=== PATIENT | male | born 1960 ===

== ENCOUNTER 2024-11-09 17:39 | Outpatient (REF) | payer BC, SELFPAY ==
--- OUTSIDE RECORDS SUMMARY | 2024-11-09 17:45 | XMS_ITS | Encounter Summary ---
Author Organization [facility] Address [address] [place] [address] Care Team Providers Care Joist Setter Name Role Phone Augustin Jessica Primary Care Provider [phone] Reason for Visit * Reason Onset Date Comments Fatigue 10/25/2024 Encounter Details Date Type Department Care Team ([facility] st Contact Info) Description 10/25/2024 Telephone [facility] Orthopedic Department [address] [address] Gricel Polk MD [address] [place] [address] Fatigue Social History Tobacco Use Types Packs/Day Years Used Date Smoking Tobacco: Never Smokeless Tobacco: Never Comments:: Alcohol Use Standard Drinks/Week Comments Never 0 (1 standard drink = 0.6 oz pur e alcohol) [facility] Utilities Answer Date Recorded In the past 12 months has [employer], gas, oil, or water [employer]se[employer] threatened to shut off services in your home? No 09/29/2024 Hunger Vital Sign Answer Date Recorded Within the past 12 months, y ou worried that your food would run out before you got the money to buy more. Never true 09/30/19 25 Within the past 12 months, t he food you bought just didn't last and you didn't have money to get more. Never true 09/29/2024 Transportation Answer Date Recorded In the past 12 months, has l ack of reliable transportation kept you from medical appointments, meetings, work or from getting things needed for daily living? No 09/29/2024 Housing Answer Date Recorded Housing Risk Low 2 09/29/2024 Housing Risk Medium Not on file 09/29/2024 Housing Risk High Not on file 09/29/2024 What is your living situation today? [facility] 09/29/2024 Sex and Gender Information Value Date Recorded Sex Assigned at Male 05/23/2023 6:09 PM EST Legal Sex Male 6:48 PM EDT Gender Identity Not on file Sexual Orientation Not on file documented as of this encounter Miscellaneous Notes * Telephone Encounter - Jessica Rodriguez - 10/25/2024 9:[address] Polk, JASON Patient called in today asking to be evaluated today. He was explaining to me he has weakness, fatigue, and overall not feeling good. I asked if this was related to his wound you have treated on 10/12. I asked if the patient if his wound could be infected and asked the follow up questions. He said hedoesn't know. I advised him call his PCP but he can't be seen in three days. I advised him to go toUC which he refused and said he might think about going to ED. 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: El Bunn III, MD [address] [place] [phone] documented as of this encounter Visit Diagnoses Not on filedocumented in this encounter Additional Health Concerns Infection Onset Date Last Indicated Resolved Time R/O Respiratory Virus Infection 10/25/2024 10/25/2024 12:42 PM EDT R/O Influenza 10/25/2024 10/25/2024 10/25/2024 12: 42 PM EDT COVID-19 - Suspected infection 10/25/2024 10/25/2024 10/25/2024 12:42 PM EDT documented as of this encounter Care Teams Joist Setter Relationship Specialty Start Date End Date Jessica Ruffin [address] [place] [address] PCP - General Internal Medicine 05/23/23 documented as of this encounter
[2024-11-09 18:42] LABS: Anion Gap 14 (12-20); Blood Urea Nitrogen 15 mg/dL (9-16); Calcium 8.8 mg/dL (8.4-10.2); Carbon Dioxide 27 mmol/L (22-29); Chloride 105 mmol/L (96-108); Estimated Glomerular Filt Rate > 60; Potassium 4.6 mmol/L (3.3-5.1); Sodium 141 mmol/L (135-145)
== END 2024-11-09 17:40 | disposition home or self-care (01) ==
LOC: HO.LNP 17:39
PROVIDERS: Visit Provider Nurse Practitioner Family
DX: L03.011 Cellulitis of right finger (principal)
CPT/HCPCS: 80048; 80202; 82550